=== PATIENT | female | born 1980 | race Caucasian/White ===

== ENCOUNTER 2018-07-18 01:08 | Emergency (ER) | payer OTHER ==
[~2018-07-18] VITALS: Ht 172.7 cm; Wt 77.1 kg
[~2018-07-18 01:08] MED LIST: ATIVAN1 MG PO; DESYREL50 MG PO; ENDOCET 10-3251 EACH PO; ETODOLAC 400 M400 M1 PO; FELDENE20 MG PO; HYTRIN 5 M5 MG/1 CAP PO; IBUPROFEN 600600 M1 PO; KEFLEX500 MG PO; KLOR-CON 1010 MEQ PO; MACROBID 100 M100 M3 PO; NEURONTIN600 MG PO; NORCO 5-325 TA1 EAC1 PO; OXYCONTIN20 M1 PO; PRILOSEC 20 MG20 MG PO; PROPRANOLOL 1010 M1 PO; VIIBRYD40 MG PO; WELLBUTRIN SR150 MG PO
[2018-07-18] MEDS ORDERED: HYDROCHLOROTH12.5 M2 PO (01:16)
[2018-07-18] MEDS ORDERED: NEURONTIN600 MG PO (01:17)
[2018-07-18] MEDS ORDERED: LINZESS145 MCG PO (01:18)
[2018-07-18] MEDS ORDERED: AMITIZA 24 MCG24 MC1 PO (01:18)
[2018-07-18] MEDS ORDERED: ZANTAC 150MG T150 MG PO (01:19)
[2018-07-18 01:44] LABS: URINE BILIRUBIN NEGATIVE (Negative); URINE BLOOD NEGATIVE (Negative); URINE CLARITY CLEAR; URINE COLOR YELLOW; URINE GLUCOSE-RANDOM NEGATIVE (Negative); URINE KETONES NEGATIVE (Negative); URINE LEUKOCYTES-REFLEX 1+ (Negative); URINE NITRITE-REFLEX NEGATIVE (Negative); URINE PROTEIN NEGATIVE (Negative); URINE UROBILINOGEN 0.2 E.U./dl (0.2-1.0)
[2018-07-18 02:10] LABS: ABSOLUTE EOSINOPHILS 0.1 thou/uL (0.0-0.7); ABSOLUTE MONOCYTES 0.4 thou/uL (0.0-1.2); ABSOLUTE NEUTROPHILS 4.9 thou/uL (1.6-8.1); BASOPHILS 0.4 %; EOSINOPHILS 1.2 %; HEMATOCRIT 35.6 % (37.0-47.0); HEMOGLOBIN 12.1 gm/dL (12.0-15.0); LYMPHOCYTES 15.5 %; MCH 30.1 pg (26.0-34.0); MCHC 34.1 g/dL (28.0-37.0); MCV 88.2 fL (80.0-100.0); MONOCYTES 6.6 %; MPV 8.8 fl. (7.2-11.1); NUCLEATED RBCS 0 /100WBC; PLATELET COUNT* 261 thou/uL (150-400); POLYS 76.3 %; RBC 4.03 mil/uL (4.20-5.00); RDW-CV 13.1 % (10.5-14.5); WBC 6.4 thou/uL (4.0-11.0)
[2018-07-18 02:17] LABS: ALBUMIN 3.3 g/dL (3.4-5.0); CALCIUM 8.3 mg/dL (8.5-10.1); POTASSIUM 3.5 mmol/L (3.5-5.1); TOTAL BILIRUBIN 0.3 mg/dL (<0.1-1.0); TOTAL PROTEIN 7.2 g/dL (6.4-8.2)
[2018-07-18 03:07] LABS: SQUAMOUS >10 Many /LPF (0-3)
[2018-07-18 03:08] LABS: CASTS None Seen /LPF (None Seen); URINE WBC-REFLEX 6-15 Few /HPF (0-5)
[2018-07-18 03:09] LABS: BACTERIA-REFLEX 1-9 Few /HPF (None Seen); URINE RBC None Seen /HPF (0-2)
[2018-07-18 03:11] LABS: AMORPHOUS PHOSPHATES Moderate /LPF (None Seen)
[2018-07-18] MEDS ORDERED: PERCOCET 10-321 EACH PO (05:13)
[2018-07-18] MEDS ORDERED: KEFLEX500 M1 PO (05:13)
[2018-07-18 05:27] VITALS: BP 129/90
== END 2018-07-18 05:27 | disposition home or self-care (01) ==
LOC: M.ERS 01:08
PROVIDERS: Personal Emergency Response Attendant
DX: N39.0 Urinary tract infection, site not specified (principal)

== ENCOUNTER 2020-10-30 12:42 | Emergency (ER) | payer OTHER, MEDICARE ==
[~2020-10-30] VITALS: Ht 172.7 cm; Wt 81.7 kg
[~2020-10-30 12:42] MED LIST changes: +AMITIZA 24 MCG24 MC1 PO; +HYDROCHLOROTH12.5 M2 PO; +KEFLEX500 M1 PO; +LINZESS145 MCG PO; +PERCOCET 10-321 EACH PO; +ZANTAC 150MG T150 MG PO
[2020-10-30] MEDS ORDERED: ZANAFLEX4 MG PO (14:57)
[2020-10-30 15:26] VITALS: BP 115/84
== END 2020-10-30 15:27 | disposition home or self-care (01) ==
LOC: M.ERS 12:42
DX: S90.121A Contusion of right lesser toe(s) without damage to nail, initial encounter (principal); Z98.51 Tubal ligation status; V89.2XXA Person injured in unspecified motor-vehicle accident, traffic, initial encounter; Y93.89 Activity, other specified; Y92.89 Other specified places as the place of occurrence of the external cause; Y99.8 Other external cause status